=== PATIENT | male | born 1975 | race Hispanic/Latino ===

== ENCOUNTER → 2022-01-10 | Outpatient (CLI) | payer OTHER | END | disposition home or self-care (01) | LOC: RAH 07:30 | PROVIDERS: ATTEND Internal Medicine Gastroenterology | DX: J90 Pleural effusion, not elsewhere classified (principal); R06.02 Shortness of breath; M47.815 Spondylosis without myelopathy or radiculopathy, thoracolumbar region | CPT/HCPCS: 71046 ==

== ENCOUNTER 2022-02-14 09:35 | Emergency (ER) | payer OTHER, MEDICAID ==
[~2022-02-14] VITALS: Ht 172.7 cm; Wt 70.3 kg
[2022-02-14 10:02] LABS: BASOPHILS % (AUTO) 0.2 % (0.0-5.0); EOSINOPHILS % (AUTO) 1.2 % (0.0-8.0); HEMATOCRIT 27.7 % (42-54); LYMPHOCYTES % (AUTO) 5.7 % (21.0-51.0); MEAN CORPUSCULAR HEMOGLOBIN 27.2 pg (27.0-33.0); MEAN CORPUSCULAR HGB CONC 32.5 g/dL (32.0-36.0); MEAN CORPUSCULAR VOLUME 83.7 fL (79-99); MONOCYTES % (AUTO) 9.5 % (3.0-13.0); NEUTROPHILS % (AUTO) 82.1 % (40.0-77.0); PLATELET COUNT (AUTO) 236 K/uL (130-400); RED BLOOD CELL COUNT(AUTO) 3.31 MIL/uL (4.50-6.20); RED CELL DISTRIBUTION WIDTH 17.7 % (11.0-15.5); WHITE BLOOD COUNT (AUTO) 16.5 K/uL (4.8-10.8)
[2022-02-14 10:12] LABS: INR 1.34 (0.85-1.15); PROTHROMBIN TIME 14.4 SEC (9.6-11.6)
[2022-02-14 10:13] LABS: PARTIAL THROMBOPLASTIN TIME 28.4 SEC (26.3-35.5)
[2022-02-14 10:17] LABS: ALBUMIN 1.1 g/dL (3.5-5.0); CREATININE 1.6 mg/dL (0.5-1.5); MAGNESIUM 1.8 mg/dL (1.80-2.40)
[2022-02-14 12:36] VITALS: BP 139/63
[2022-02-14 12:43] LABS: APPEARANCE,URINE CLEAR (CLEAR); BILIRUBIN,URINE NEGATIVE (NEGATIVE); COLOR,URINE LIGHT-YELLOW (YELLOW); GLUCOSE, URINE (UA) NEGATIVE (NEGATIVE); KETONES,URINE NEGATIVE (NEGATIVE); LEUKOCYTE ESTERASE ,URINE NEGATIVE Leu/uL (NEGATIVE); NITRATE,URINE NEGATIVE (NEGATIVE); OCCULT BLOOD,URINE NEGATIVE (NEGATIVE); PROTEIN,URINE NEGATIVE (NEGATIVE); UROBILINOGEN,URINE 0.2 mg/dL (0.2-1.0)
== END 2022-02-14 13:02 | disposition home or self-care (01) ==
LOC: EDH 09:35
DX: K74.60 Unspecified cirrhosis of liver (principal); D64.9 Anemia, unspecified; R18.8 Other ascites; E11.9 Type 2 diabetes mellitus without complications; E78.00 Pure hypercholesterolemia, unspecified; I10 Essential (primary) hypertension
CPT/HCPCS: 36415; 80053; 81003; 83735; 84484; 85025; 85610; 85730; 93005

== ENCOUNTER → 2022-05-17 | Outpatient (CLI) | payer MEDICAID ==
[2022-05-17 09:22] LABS: BASOPHILS % (AUTO) 0.8 % (0.0-5.0); EOSINOPHILS % (AUTO) 6.3 % (0.0-8.0); HEMATOCRIT 33.1 % (42-54); LYMPHOCYTES % (AUTO) 10.6 % (21.0-51.0); MEAN CORPUSCULAR HEMOGLOBIN 28.3 pg (27.0-33.0); MEAN CORPUSCULAR HGB CONC 30.8 g/dL (32.0-36.0); MEAN CORPUSCULAR VOLUME 91.7 fL (79-99); MONOCYTES % (AUTO) 15.3 % (3.0-13.0); PLATELET COUNT (AUTO) 127 K/uL (130-400); RED BLOOD CELL COUNT(AUTO) 3.61 MIL/uL (4.50-6.20)
[2022-05-17 09:30] LABS: INR 1.12 (0.85-1.15); PROTHROMBIN TIME 12.1 SEC (9.6-11.6)
[2022-05-17 09:34] LABS: CREATININE 1.8 mg/dL (0.5-1.5); POTASSIUM 4.9 mmol/L (3.5-5.1); TOTAL PROTEIN, SERUM 8.9 g/dL (6.0-8.3)
== END | disposition home or self-care (01) ==
LOC: LAB 07:27
PROVIDERS: ATTEND Internal Medicine Gastroenterology
DX: K70.31 Alcoholic cirrhosis of liver with ascites (principal); K65.1 Peritoneal abscess; R10.30 Lower abdominal pain, unspecified
CPT/HCPCS: 36415; 80053; 82105; 82140; 85025; 85610

== ENCOUNTER → 2022-10-24 | Outpatient (CLI) | payer MEDICAID | END | disposition home or self-care (01) | LOC: RAH 09:09 | PROVIDERS: ATTEND Internal Medicine Gastroenterology | DX: K70.31 Alcoholic cirrhosis of liver with ascites (principal) | CPT/HCPCS: 76700; 93975 ==

== ENCOUNTER → 2022-11-28 | Outpatient (CLI) | payer MEDICAID | END | disposition home or self-care (01) | LOC: RAH 09:42 | PROVIDERS: ATTEND Internal Medicine Hepatology | DX: K80.20 Calculus of gallbladder without cholecystitis without obstruction (principal); K76.82 Hepatic encephalopathy; K76.6 Portal hypertension; K70.31 Alcoholic cirrhosis of liver with ascites; E88.09 Other disorders of plasma-protein metabolism, not elsewhere classified; I85.00 Esophageal varices without bleeding; N18.31 Chronic kidney disease, stage 3a; D69.6 Thrombocytopenia, unspecified; E78.01 Familial hypercholesterolemia; R74.8 Abnormal levels of other serum enzymes; E87.5 Hyperkalemia; R16.1 Splenomegaly, not elsewhere classified; E87.1 Hypo-osmolality and hyponatremia | CPT/HCPCS: 76700 ==

== ENCOUNTER → 2023-02-07 | Outpatient (CLI) | payer MEDICAID | END | disposition home or self-care (01) | LOC: RAH 07:49 | PROVIDERS: ATTEND Internal Medicine Hepatology | DX: K70.31 Alcoholic cirrhosis of liver with ascites (principal) | CPT/HCPCS: 76705 ==

== ENCOUNTER → 2023-09-16 | Outpatient (CLI) | payer MEDICAID ==
[2023-09-16 09:34] LABS: INR 1.26 (0.85-1.15); PROTHROMBIN TIME 14.6 SEC (9.6-11.6)
[2023-09-16 09:36] LABS: PARTIAL THROMBOPLASTIN TIME 31.9 SEC (26.3-35.5)
== END | disposition home or self-care (01) ==
LOC: RAH 08:21
PROVIDERS: ATTEND Transplant Surgery
DX: K70.31 Alcoholic cirrhosis of liver with ascites (principal)
CPT/HCPCS: 36415; 76705; 85610; 85730

== ENCOUNTER → 2024-01-08 | Outpatient (CLI) | payer MEDICAID ==
[2024-01-08 08:39] LABS: INR 1.21 (0.85-1.15); PROTHROMBIN TIME 12.9 SEC (9.6-11.6)
[2024-01-08 08:40] LABS: PARTIAL THROMBOPLASTIN TIME 29.1 SEC (26.3-35.5)
== END | disposition home or self-care (01) ==
LOC: RAH 07:36
PROVIDERS: ATTEND Transplant Surgery
DX: R18.8 Other ascites (principal); K70.30 Alcoholic cirrhosis of liver without ascites
CPT/HCPCS: 36415; 76705; 85610; 85730

== ENCOUNTER → 2024-05-03 | Outpatient (CLI) | payer MEDICAID ==
--- NOTE | 2024-05-03 08:45 | NUR ---
U/S GD PARACENTESIS NOT DONE U/S PERFORMED BY [facility]. NOT ENOUGH FLUID TO PERFORM PROCEDURE SAFELY. DR YOUSIF REVIEWED IMAGES. INFORMED PT VERBALIZED UNDERSTANDING. DISCHARGE VIA AMBULATORY.
--- NOTE | 2024-05-03 09:02 | HMCIMG ---
US ABD LIMITED/ABD WALL REASON: MALIGNANT ASCITES. COMPARISON: None TECHNIQUE: Limited abdominal ultrasound study was performed for evaluation of ascites. FINDINGS: Tiny ascites is seen. Paracentesis could not be performed. IMPRESSION: Tiny ascites
[2024-05-03 09:11] LABS: INR 1.08 (0.85-1.15)
[2024-05-03 09:12] LABS: PARTIAL THROMBOPLASTIN TIME 29.1 SEC (26.3-35.5)
== END | disposition home or self-care (01) ==
LOC: RAH 07:38
PROVIDERS: ATTEND Family Medicine
DX: C76.2 Malignant neoplasm of abdomen (principal); R18.0 Malignant ascites; K74.60 Unspecified cirrhosis of liver; R10.9 Unspecified abdominal pain
CPT/HCPCS: 36415; 76705; 85610; 85730

== ENCOUNTER → 2024-08-03 | Outpatient (CLI) | payer MEDICAID ==
--- NOTE | 2024-08-03 10:18 | HMCIMG ---
CT ABDOMEN/PELVIS W/O CONTRAST HISTORY: Abdominal pain COMPARISON: None TECHNIQUE: Multiple sequential axial images of the abdomen and pelvis were obtained from the dome of the diaphragm through symphysis pubis. Patient was not given contrast through intravenous route. Oral contrast was given. FINDINGS: Tiny left pleural effusion is seen. Minimal left lower lung pulmonary infiltrates are seen. Degenerative changes of the thoracolumbar spine are present. The heart is not enlarged. Thickening is enlarged measuring 16 cm. The liver, spleen, adrenal glands and pancreas are unremarkable. There is no evidence of hydronephrosis bilaterally. No evidence of renal stone is seen. Fecal material is seen in the colon. There are normal size retroperitoneal and mesenteric lymph nodes. Small ascites is seen. Mesenteric fat stranding is seen with early omental mass not completely excluded. Atherosclerotic changes are present. No bowel obstruction is seen. Pelvic sidewalls are symmetric bilaterally. Bladder is poorly distended. IMPRESSION: 1. Small ascites is seen. Bowel obstruction is seen. Enlarged spleen. Mesenteric fat stranding is seen with early omental mass not excluded. CT was performed with one or more following dose reduction techniques: automated exposure control, adjustment of the mA and kv according to patient's size, or use of a iterative reconstruction technique.
== END | disposition home or self-care (01) ==
LOC: RAH 08:02
PROVIDERS: ATTEND Internal Medicine Gastroenterology
DX: K56.609 Unspecified intestinal obstruction, unspecified as to partial versus complete obstruction (principal); R18.8 Other ascites; R16.1 Splenomegaly, not elsewhere classified; R10.30 Lower abdominal pain, unspecified; M47.815 Spondylosis without myelopathy or radiculopathy, thoracolumbar region; I70.90 Unspecified atherosclerosis; J90 Pleural effusion, not elsewhere classified
CPT/HCPCS: 74176

== ENCOUNTER → 2025-02-23 | Outpatient (CLI) | payer MEDICAID ==
--- NOTE | 2025-02-23 23:36 | HMCIMG ---
EXAM: ABDOMINAL ULTRASOUND Technique: Grayscale and color Doppler ultrasound of the abdomen performed in longitudinal and transverse planes with targeted evaluation of the liver, gallbladder and biliary tree, pancreas, spleen, kidneys, aorta, and inferior vena cava. Clinical Information: Evaluation for bilirubin metabolism abnormality. Comparison: None. Findings: Liver: Measures 13 cm in craniocaudal span; coarse echotexture consistent with chronic parenchymal disease; limited visualization of the left lobe. Gallbladder and biliary tree: Gallbladder wall measures 4 mm; one small gallstone is present; no pericholecystic fluid identified; common bile duct measures 6 mm. Pancreas: Head and body are normal in echotexture; pancreatic tail is obscured by overlying bowel gas. Spleen: Measures 16 cm, enlarged. Aorta and inferior vena cava: Aorta and inferior vena cava are obscured/poorly visualized. Right kidney: Measures 9.4 ??? 4.5 ??? 4.3 cm with preserved cortical echogenicity and thickness; no hydronephrosis. Left kidney: Measures 10.4 ??? 5.4 ??? 4.3 cm with preserved cortical echogenicity and thickness; no hydronephrosis. Peritoneum: Small volume free fluid is present. Impression:1. Coarse hepatic echotexture suggesting chronic parenchymal liver disease; correlate with liver function tests and clinical context. 2. Cholelithiasis with gallbladder wall thickening (4 mm); no sonographic pericholecystic fluid. Correlate for right upper quadrant tenderness and laboratory evidence of cholecystitis; hepatobiliary iminodiacetic acid study could be considered if acute cholecystitis is suspected. 3. Splenomegaly (16 cm). 4. Small volume ascites. 5. The pancreatic tail, aorta, inferior vena cava, and hepatic left lobe are suboptimally visualized due to overlying bowel gas/limited acoustic windows. 6. The kidneys are normal in size and cortical echogenicity, without hydronephrosis. /[place]
== END | disposition home or self-care (01) ==
LOC: RAH 09:07
PROVIDERS: ATTEND Internal Medicine Gastroenterology
DX: K80.20 Calculus of gallbladder without cholecystitis without obstruction (principal); E80.6 Other disorders of bilirubin metabolism; I85.00 Esophageal varices without bleeding; K76.6 Portal hypertension; E88.09 Other disorders of plasma-protein metabolism, not elsewhere classified; K76.82 Hepatic encephalopathy; D69.6 Thrombocytopenia, unspecified; E11.69 Type 2 diabetes mellitus with other specified complication; R16.1 Splenomegaly, not elsewhere classified; R18.8 Other ascites
CPT/HCPCS: 76700

== ENCOUNTER → 2025-02-23 | Outpatient (CLI) | payer MEDICAID ==
--- NOTE | 2025-02-23 13:32 | HMCIMG ---
EXAM: CT Abdomen and Pelvis Without IV contrast CLINICAL HISTORY: RT LOWER QUADRANT PAIN TECHNIQUE: Axial computed tomography images of the abdomen and pelvis without intravenous contrast. CONTRAST: No IV contrast. COMPARISON: None provided. FINDINGS: LUNG BASES: Minimal left-sided pleural effusion with passive atelectasis. Biateral pleuroparenhcymal fibrotic bands in the lower lobes. LIVER: The right lobe of the liver appears mildly atrophic with decreased attenuation. GALLBLADDER AND BILE DUCTS: The gallbladder is distended with multiple calculi of average size 5-6 mm without changes of acute cholecystitis. No biliary ductal dilatation is evident. PANCREAS: Unremarkable. SPLEEN: The spleen is enlarged, measuring 18.0 cm. ADRENAL GLANDS: Unremarkable. KIDNEYS, URETERS, AND BLADDER: The kidneys appear within normal limits. There is no hydronephrosis or hydroureter. No urinary calculi are seen. STOMACH AND BOWEL: There is mild dilatation of the small bowel loops of maximum diameter up to 3.2 cm. Diffuse gastric wall thickening. The ileo-cecal junction appears normal. The large bowel loops appear collapsed. No evidence suggesting enteritis or colitis. PERITONEUM: Mild free fluid. No free air. Diffuse abdominal wall fat stranding. LYMPH NODES: Multiple subcentimeteric lymph nodes in the mesenteric region of average size 8-9 mm. Diffuse mesenteric fat stranding. REPRODUCTIVE: Unremarkable as visualized. VASCULATURE: No evidence of abdominal aortic aneurysm. BONES: No aggressive appearing osseous lesion. No acute osseous pathology evident. IMPRESSION: 1. Small bowel obstruction, maximum diameter 3.2 cm, no obvious transition point. 2. Splenomegaly, spleen measuring 18.0 cm. 3. Cholelithiasis without acute cholecystitis. 4. Mild free fluid and diffuse abdominal wall fat stranding. 5. Multiple subcentimeter mesenteric lymph nodes with diffuse mesenteric fat stranding. /[place]
== END | disposition home or self-care (01) ==
LOC: RAH 09:30
PROVIDERS: ATTEND Internal Medicine Nephrology
DX: K80.20 Calculus of gallbladder without cholecystitis without obstruction (principal); K72.90 Hepatic failure, unspecified without coma; K82.8 Other specified diseases of gallbladder; R10.31 Right lower quadrant pain; R16.1 Splenomegaly, not elsewhere classified; I89.8 Other specified noninfective disorders of lymphatic vessels and lymph nodes
CPT/HCPCS: 74176